=== PATIENT | female | born 1945 | race American Indian/Alaskan Native ===

== ENCOUNTER 2017-10-18 11:18 | Outpatient (CLI) | payer MEDICARE ==
--- NOTE | 2017-10-18 14:28 | Mammography Report ---
BONE DEXA:10/18/17 11:18:00 CLINICAL: Postmenopausal. No comparison. TECHNIQUE: Two site bone DEXA performed on an Hologic scanner. FINDINGS: The average BMD of the lumbar spine L1-L4 is 1.131g/cm squared with a T-score of +0.8 and a Z-score of +2.2. The average BMD of the left hip is 0.890g/cm squared with a T-score of -0.4 and a Z-score of +0.2. IMPRESSION: WHO classification: Normal with average fracture risk based on both spine and left hip measurements. RECOMMENDATION: Clinical correlation and routine screening. DEFINITIONS: BMD = Bone Mineral Density T-score = BMD related to mean peak bone mass of young adult (mean expressed in Standard Deviation) Z-score = Age matched BMD expressed in SD World Health Organization (WHO) Diagnostic Criteria Normal T-score > -1 SD Osteopenia T-score between -1 and -2.4 SD Osteoporosis T-score -2.5 SD or below NOTE: BMD is not the only risk factor for fracture. One should also consider factors such as the patient's age, risk of falling, previous osteoporotic fracture, family history of osteoporotic fractures, current smoker, and low body weight. Z-scores are not calculated if >80 years of age.
== END 2017-10-18 11:19 | disposition home or self-care (01) ==
LOC: MAMMO 11:18
PROVIDERS: ATTEND Obstetrics & Gynecology
DX: Z13.820 Encounter for screening for osteoporosis (principal); Z78.0 Asymptomatic menopausal state; F17.219 Nicotine dependence, cigarettes, with unspecified nicotine-induced disorders
CPT/HCPCS: 77080

== ENCOUNTER 2021-12-07 06:28 | Outpatient (CLI) | payer MEDICARE ==
[2021-12-07 07:38] LABS: Basophils # (Auto) 0.1 K/mm3 (0.0-0.1); Basophils % (Auto) 1.8 % (0.0-1.8); Eosinophils # (Auto) 0.3 K/mm3 (0.0-0.4); Eosinophils % (Auto) 5.5 % (0.0-4.3); Hematocrit 37.2 % (30.3-42.9); Hemoglobin 12.2 gm/dl (10.1-14.3); Lymphocytes % (Auto) 41.5 % (13.4-35.0); Mean Corpuscular HGB Conc 33 % (30-34); Mean Corpuscular Volume 90 fl (79-97); Monocytes # (Auto) 0.7 K/mm3 (0.0-0.8); Monocytes % (Auto) 14.5 % (0.0-7.3); Platelet Count 229 K/mm3 (140-440); Red Blood Count 4.14 M/mm3 (3.65-5.03); Red Cell Distribution Width 14.2 % (13.2-15.2)
[2021-12-07 07:46] LABS: INR 0.89 (0.87-1.13)
[2021-12-07 07:47] LABS: Partial Thromboplastin Time 34.6 Sec. (24.2-36.6)
[2021-12-07] MEDS ORDERED: ONDANSETRON 4 MG/2 ML INJ IV ONE (09:09)
[2021-12-07] MEDS ORDERED: HYDROmorphone 1 MG/1 ML INJ IV NR (09:10)
[2021-12-07 10:52] VITALS: BP 138/71
--- NOTE | 2021-12-07 12:10 | Cat Scan Report ---
CT CHEST WITHOUT CONTRAST INDICATION / CLINICAL INFORMATION: D14.30. Right lung mass. TECHNIQUE: Axial CT images were obtained through the chest without contrast. All CT scans at this [facility] ation are performed using CT dose reduction for ALARA by means of automated exposure control. COMPARISON: 08/16/2021 FINDINGS: HEART: Stable mild cardiomegaly CORONARY ARTERY CALCIFICATION: Present -- Mild. THORACIC AORTA: No significant abnormality. MEDIASTINUM / ANNALEE: No significant abnormality. No adenopathy. PLEURA: No pleural effusion. No pneumothorax. LUNGS: No acute air space or interstitial disease. A well-circumscribed 1.6 x 1.0 cm nodule in the la teral right middle lobe is again identified and unchanged since 08/16/2021 exam from an outlying [facility] ity. No evidence for calcifications, spiculation or internal necrosis. The remaining lungs are clear. No new nodule or mass. ADDITIONAL FINDINGS: None. UPPER ABDOMEN: No significant abnormality. SKELETAL SYSTEM: No suspicious bony lesion is detected. IMPRESSION: This examination was scheduled as a CT-guided biopsy of the 1.6 x 1.0 cm right middle lobe nodule. Mu ltiple attempts at CT-guided biopsy were made. This lesion is located just beneath the right lateral seventh rib due to location and breathing motion by the patient, CT-guided needle placement/biopsy wa s unsuccessful. Multiple attempts were made to reposition the patient for better access which were al so unsuccessful. This nodule however is unchanged since 08/16/2021 exam measuring 1.6 x 1.0 cm in axia l plane. Current guidelines recommend follow-up at 3 months, PET/CT, and/or biopsy. This nodule is un changed at approximately 4 months since the previous exam. Consider another follow-up CT in 3-6 month s to ensure stability or PET/CT. Signer Name: Samir Leslie Jr, MD Signed: 12/07/2021 12:06 PM Workstation Name: [id number]
== END 2021-12-07 12:41 | disposition home or self-care (01) ==
LOC: CATHLABREC 06:28
PROVIDERS: ATTEND Internal Medicine
DX: R91.1 Solitary pulmonary nodule (principal); D14.30 Benign neoplasm of unspecified bronchus and lung; I51.7 Cardiomegaly; I25.10 Atherosclerotic heart disease of native coronary artery without angina pectoris
CPT/HCPCS: 36415; 71250; 85025; 85610; 85730; J1170; J2405